=== PATIENT | male | born 1945 | race Caucasian/White ===

== ENCOUNTER 2023-12-15 10:57 | Emergency (ER) | payer MEDICARE ==
[~2023-12-15] VITALS: Ht 177.8 cm; Wt 92.5 kg
[2023-12-15 10:57] VITALS: BP_SYST 64; PULSE 238; RESP 20; TEMP 97.2; O2SAT 98
[2023-12-15] MEDS ORDERED: LORazepam 2 MG/ML VIAL ONE (11:18)
[2023-12-15] MEDS: LORazepam 2 MG/ML VIAL IVP ONE (11:21)
[2023-12-15] MEDS: NACL 0.9% 1,000 ML IV ONE (11:21)
[2023-12-15 11:32] LABS: BASOPHILS % (AUTO) 0.4 % (0.0-2.0); EOSINOPHILS # (AUTO) 0.2 K/uL (0.0-0.4); EOSINOPHILS % (AUTO) 2.4 % (0.0-4.0); HEMATOCRIT 38.7 % (36-54); HEMOGLOBIN 13.6 g/dL (14.0-18.0); LYMPHOCYTES # (AUTO) 3.5 K/uL (1.0-5.5); LYMPHOCYTES % (AUTO) 43.4 % (20.5-51.5); MEAN CORPUSCULAR HEMOGLOBIN 33 pg (27-31); MEAN CORPUSCULAR HGB CONC 35 % (32-36); MEAN CORPUSCULAR VOLUME 95 fL (79.0-98.0); MONOCYTES # (AUTO) 0.6 K/uL (0.0-1.0); MONOCYTES % (AUTO) 7.9 % (1.7-9.3); NEUTROPHILS # (AUTO) 3.7 K/uL (1.8-7.7); NEUTROPHILS % (AUTO) 45.9 % (40.0-70.0); PLATELET COUNT (AUTO) 201 K/uL (130-430); RED BLOOD CELL COUNT(AUTO) 4.05 MIL/uL (4.2-6.2); RED CELL DISTRIBUTION WIDTH 12.8 % (9.0-15.0); WHITE BLOOD COUNT (AUTO) 8.1 K/uL (4.8-10.8)
[2023-12-15 11:57] LABS: ANION GAP 12 (5-15); CALCIUM 8.4 mg/dL (8.4-11.0); CARBON DIOXIDE 23 mmol/L (23-29); CHLORIDE 106 mmol/L (98-107); CREATININE 1.34 mg/dL (0.55-1.30); GLUCOSE 216 mg/dL (74-106); POTASSIUM 3.9 mmol/L (3.5-5.1); SODIUM SERUM 141 mmol/L (136-145); UREA NITROGEN, BLOOD 14 mg/dL (8-21)
[2023-12-15 11:59] LABS: PROTHROMBIN TIME 10.7 SECS (9.5-12.5)
[2023-12-15 12:04] LABS: ALANINE AMINOTRANSFERASE 38 U/L (12-78); ALBUMIN 3.2 g/dL (3.4-4.8); ASPARTATE AMINOTRANSFERASE 30 U/L (10-37); BILIRUBIN,DIRECT 0.2 mg/dL (0.0-0.3); TOTAL BILIRUBIN 0.7 mg/dL (0.0-1.0); TOTAL PROTEIN, SERUM 6.4 g/dL (6.4-8.3)
[2023-12-15] MEDS: AMIODARONE HCL 150 MG in D5W 97 ML IV ONE (12:16)
[2023-12-15] MEDS: AMIODARONE HCL 450 MG in D5W 241 ML IV ONE (12:23)
[2023-12-15 12:58] VITALS: BP_SYST 110; PULSE 80; RESP 18; TEMP 97.9; O2SAT 98
== END 2023-12-15 12:54 | disposition short-term general hospital (02) ==
LOC: SED 10:57
DX: I47.20 Ventricular tachycardia, unspecified (principal); R07.9 Chest pain, unspecified; E11.9 Type 2 diabetes mellitus without complications; I10 Essential (primary) hypertension; R55 Syncope and collapse; Z88.0 Allergy status to penicillin
CPT/HCPCS: 99291; 92960; 96365; 71045; 96375; 80076; 80048; 83735; 85025; 85610; 85730; 84484; 36415; 99292; 93005; 96376; J0282; J2060; J7060 ×2; J7030